=== PATIENT | male | born 1945 | race Caucasian/White ===

== ENCOUNTER 2020-05-06 13:09 | Emergency (ER) | payer OTHER ==
[2020-05-06 13:42] LABS: BASOPHIL 0.7 % (0-2); EOSINOPHIL 4.6 % (0-7); HCT 43.4 % (42.0-52.0); HGB 14.3 g/dl (13.2-18.0); LYMPHOCYTE 28.3 % (15-48); MCH 30.3 pg (25.0-31.0); MCHC 32.9 g/dL (32.0-36.0); MCV 91.9 fL (78.0-100.0); MONOCYTE 6.4 % (0-12); MPV 9.7 fL (6.0-9.5); NEUTROPHIL 59.6 % (41-80); NRBC 0; PLT 261 K/uL (150-400); RBC 4.72 M/uL (4.70-6.00); RDW 14.2 % (11.5-14.0)
[2020-05-06 13:52] LABS: INR 1.01 (0.9-1.2); PROTHROMBIN TIME 12.6 SECONDS (11.4-13.6); PTT 28.3 SECONDS (22.2-34.7)
[2020-05-06 13:56] LABS: ALBUMIN 3.6 g/dL (3.4-5.0); BILIRUBIN - TOTAL 0.3 mg/dL (0.2-1.0); BUN/CREAT RATIO (CALC) 9.4 RATIO; CREATININE 0.96 mg/dL (0.67-1.17); POTASSIUM 3.9 mmol/L (3.5-5.1); TOTAL PROTEIN 7.6 g/dL (6.4-8.2)
== END 2020-05-06 16:50 | disposition other institution (70) ==
LOC: FER 13:09
PROVIDERS: Emergency Medicine
DX: S06.349A Traumatic hemorrhage of right cerebrum with loss of consciousness of unspecified duration, initial encounter (principal); H54.7 Unspecified visual loss; F17.210 Nicotine dependence, cigarettes, uncomplicated; W19.XXXA Unspecified fall, initial encounter; Z20.822 Contact with and (suspected) exposure to COVID-19
CPT/HCPCS: 36415; 70450; 80053; 85025; 85610; 85730; 93005; J7030; U0002

== ENCOUNTER 2020-05-27 12:13 | Emergency (ER) | payer OTHER ==
[2020-05-27 12:51] LABS: BASOPHIL 0.8 % (0-2); EOSINOPHIL 2.2 % (0-7); HCT 37.3 % (42.0-52.0); HGB 12.5 g/dl (13.2-18.0); LYMPHOCYTE 20.9 % (15-48); MCH 30.7 pg (25.0-31.0); MCHC 33.5 g/dL (32.0-36.0); MCV 91.6 fL (78.0-100.0); MONOCYTE 10.1 % (0-12); MPV 10.1 fL (6.0-9.5); NEUTROPHIL 65.8 % (41-80); NRBC 0; PLT 282 K/uL (150-400); RBC 4.07 M/uL (4.70-6.00); RDW 13.3 % (11.5-14.0)
[2020-05-27 13:02] LABS: PTT 29.5 SECONDS (22.2-34.7)
[2020-05-27 13:03] LABS: INR 1.24 (0.9-1.2); PROTHROMBIN TIME 14.8 SECONDS (11.4-13.6)
[2020-05-27 13:23] LABS: BILIRUBIN - TOTAL 0.3 mg/dL (0.2-1.0); BUN/CREAT RATIO (CALC) 28.4 RATIO; CREATININE 0.88 mg/dL (0.67-1.17); GLOBULIN (CALCULATION) 3.9 g/dL; POTASSIUM 3.2 mmol/L (3.5-5.1); TOTAL PROTEIN 6.9 g/dL (6.4-8.2)
== END 2020-05-27 16:10 | disposition home or self-care (01) ==
LOC: FER 12:13
PROVIDERS: Emergency Medicine
DX: R07.89 Other chest pain (principal); R06.02 Shortness of breath; I10 Essential (primary) hypertension; J45.909 Unspecified asthma, uncomplicated; I48.91 Unspecified atrial fibrillation; F17.210 Nicotine dependence, cigarettes, uncomplicated; Z86.73 Personal history of transient ischemic attack (TIA), and cerebral infarction without residual deficits; Z87.19 Personal history of other diseases of the digestive system; Z88.5 Allergy status to narcotic agent
CPT/HCPCS: 36415; 71045; 80053; 84484; 85025; 85610; 85730; 93005

== ENCOUNTER 2020-06-03 21:30 | Day surgery (SDCO) | payer OTHER ==
[2020-06-03 22:49] LABS: BASOPHIL 0.7 % (0-2); EOSINOPHIL 3.5 % (0-7); HCT 39.7 % (42.0-52.0); HGB 13.2 g/dl (13.2-18.0); LYMPHOCYTE 16.8 % (15-48); MCH 30.9 pg (25.0-31.0); MCHC 33.2 g/dL (32.0-36.0); MONOCYTE 9.8 % (0-12); MPV 10.3 fL (6.0-9.5); NEUTROPHIL 68.9 % (41-80); NRBC 0; PLT 247 K/uL (150-400); RBC 4.27 M/uL (4.70-6.00); RDW 13.5 % (11.5-14.0); WBC 9.9 K/uL (4.0-10.5)
[2020-06-03 23:01] LABS: ALBUMIN 3.4 g/dL (3.4-5.0); BILIRUBIN - TOTAL 0.5 mg/dL (0.2-1.0); GLOBULIN (CALCULATION) 4.1 g/dL; POTASSIUM 4.4 mmol/L (3.5-5.1); TOTAL PROTEIN 7.5 g/dL (6.4-8.2)
[2020-06-04 03:23] LABS: BUN/CREAT RATIO (CALC) 20.9 RATIO; CREATININE 1.15 mg/dL (0.67-1.17); POTASSIUM 4.3 mmol/L (3.5-5.1)
[2020-06-04 03:26] LABS: BASOPHIL 0.7 % (0-2); EOSINOPHIL 3.1 % (0-7); HCT 37.6 % (42.0-52.0); HGB 12.5 g/dl (13.2-18.0); MCH 30.3 pg (25.0-31.0); MCHC 33.2 g/dL (32.0-36.0); MCV 91.3 fL (78.0-100.0); MONOCYTE 8.6 % (0-12); MPV 10.3 fL (6.0-9.5); NEUTROPHIL 63.3 % (41-80); NRBC 0; PLT 224 K/uL (150-400); RBC 4.12 M/uL (4.70-6.00); RDW 13.3 % (11.5-14.0); WBC 8.9 K/uL (4.0-10.5)
[2020-06-04] MEDS ORDERED: ASPIRIN EC81 MG PO (06:45)
[2020-06-04] MEDS ORDERED: PLAVIX75 M1 PO (06:45)
[2020-06-04] MEDS ORDERED: PRINIVIL10 MG PO (06:47)
[2020-06-04] MEDS ORDERED: ATIVAN1 MG PO (06:47)
[2020-06-04] MEDS ORDERED: MEGACE40 MG PO (09:30)
== END 2020-06-04 10:53 | disposition home health service (06) ==
LOC: FER 21:30 → FTCU 23:59
PROVIDERS: Emergency Medicine; Nurse Practitioner; ADMIT Internal Medicine
DX: R42 Dizziness and giddiness (principal); F17.210 Nicotine dependence, cigarettes, uncomplicated; I10 Essential (primary) hypertension; K21.9 Gastro-esophageal reflux disease without esophagitis; M19.90 Unspecified osteoarthritis, unspecified site; F10.11 Alcohol abuse, in remission; R53.1 Weakness; Z86.73 Personal history of transient ischemic attack (TIA), and cerebral infarction without residual deficits; Z88.5 Allergy status to narcotic agent; Z20.822 Contact with and (suspected) exposure to COVID-19
CPT/HCPCS: 36415; 70450; 71045; 80048; 80053; 84484; 85025; 93005; G0378; J1650; J1885; J7030; U0002